=== PATIENT | male | born 1960 | race American Indian/Alaskan Native ===

== ENCOUNTER 2016-12-03 05:37 | Emergency (ER) | payer OTHER ==
[2016-12-03] MEDS ORDERED: PEPCID IV ONE (09:04)
--- NOTE | 2016-12-03 09:06 | Emergency Department Report ---
ED General Adult HPI - General Chief complaint: Sore Throat Stated complaint: THROAT SWOLLEN Time Seen by Provider: 12/03/16 08:54 Source: patient Mode of arrival: Ambulatory Limitations: No Limitations - History of Present Illness Initial comments: This is a 56-year-old male. He is previously known to me. Does not have a primary care doctor. Denies chronic medical conditions. The patient presents to the ER with resolved swelling of his throat. Patient has no complaints at this time. He has no neck pain, neck stiffness, chest pain , shortness of breath at this time. He describes his symptoms as swelling of his neck, and of his tongue. No recent medications, no recent allergies that he is aware of, no recent food changes. Patient and his both report complete resolution of symptoms at this time, they request to go home. -: Gradual Location: mouth, neck Consistency: now resolved Improves with: none Worsens with: none Associated Symptoms: denies other symptoms - Related Data Previous Rx's Medication Instructions Recorded Last Taken Type EPINEPHrine [Epipen 2-Randal] 0.3 mg IM DAILY PRN #2 ml 12/03/16 Unknown Rx Famotidine [Pepcid] 20 mg PO BID #10 tablet 12/03/16 Unknown Rx diphenhydrAMINE [Benadryl] 50 mg PO Q8HR PRN #20 capsule 12/03/16 Unknown Rx methylPREDNISolone [Medrol] 4 mg PO QDAY #1 tab.ds.pk 12/03/16 Unknown Rx Allergies Allergy/AdvReac Type Severity Reaction Status Date / Time No Known Allergies Allergy Unverified 12/03/16 05:59 ED Review of Systems ROS: Stated complaint: THROAT SWOLLEN Other details as noted in HPI Constitutional: denies: malaise Eyes: denies: vision change ENT: throat pain Respiratory: denies: orthopnea Cardiovascular: denies: chest pain Gastrointestinal: denies: abdominal pain, nausea, diarrhea Genitourinary: denies: urgency, dysuria Musculoskeletal: denies: back pain, joint swelling, arthralgia Skin: denies: rash, lesions Neurological: denies: headache, weakness, paresthesias Psychiatric: denies: anxiety, depression ED Past Medical Hx - Past Medical History Previous Medical History?: No - Surgical History Past Surgical History?: Yes Additional Surgical History: knee surgery - Social History Smoking Status: Current Every Day Smoker Substance Use Type: Alcohol - Medications Home Medications: Home Medications Medication Instructions Recorded Confirmed Last Taken Type EPINEPHrine [Epipen 2-Randal] 0.3 mg IM DAILY PRN #2 ml 12/03/16 Unknown Rx Famotidine [Pepcid] 20 mg PO BID #10 tablet 12/03/16 Unknown Rx diphenhydrAMINE [Benadryl] 50 mg PO Q8HR PRN #20 capsule 12/03/16 Unknown Rx methylPREDNISolone [Medrol] 4 mg PO QDAY #1 tab.ds.pk 12/03/16 Unknown Rx ED Physical Exam - General Limitations: No Limitations General appearance: alert, in no apparent distress - Head Head exam: Present: atraumatic, normocephalic - Eye Eye exam: Present: normal appearance, EOMI. Absent: nystagmus - ENT ENT exam: Present: normal exam, normal orophraynx, mucous membranes moist, normal external ear exam, other (there is no neck tenderness. There is no pain with lateral manipulation of the trachea. There is no adenopathy. The patient is speaking in full sentences. There is no stridor.) - Neck Neck exam: Present: normal inspection, full ROM. Absent: tenderness, meningismus - Respiratory Respiratory exam: Present: normal lung sounds bilaterally. Absent: respiratory distress, wheezes, rales, rhonchi, stridor, decreased breath sounds - Cardiovascular Cardiovascular Exam: Present: regular rate, normal rhythm, normal heart sounds. Absent: bradycardia, tachycardia, irregular rhythm, systolic murmur, diastolic murmur, rubs, gallop - GI/Abdominal GI/Abdominal exam: Present: soft, normal bowel sounds. Absent: distended, tenderness, guarding, rebound, rigid, pulsatile mass - Rectal Rectal exam: Present: deferred - Extremities Exam Extremities exam: Present: normal inspection, full ROM, normal capillary refill. Absent: tenderness, pedal edema, joint swelling, calf tenderness - Back Exam Back exam: Present: normal inspection, full ROM. Absent: tenderness, CVA tenderness (R), CVA tenderness (L), muscle spasm, paraspinal tenderness, vertebral tenderness - Neurological Exam Neurological exam: Present: alert, oriented X3, normal gait, other (Extraocular movements intact. Tongue midline. No facial droop. Facial sensation intact to light touch in the V1, V2, V3 distribution bilaterally. 5 and 5 strength in 4 extremities.. Sensation is intact to light touch in 4 extremities.). Absent : motor sensory deficit - Psychiatric Psychiatric exam: Present: normal affect, normal mood - Skin Skin exam: Present: warm, dry, intact, normal color. Absent: rash ED Course Vital Signs 12/03/16 12/03/16 12/03/16 05:59 06:30 09:32 Temperature 98 F Pulse Rate 72 87 Respiratory 18 18 16 Rate Blood Pressure 140/102 Blood Pressure 145/73 [Left] O2 Sat by Pulse 98 99 100 Oximetry - Reevaluation(s) Reevaluation #1: 12/03/16 10:14 Differential diagnosis: Allergic reaction, now resolved, angioedema now resolved Assessment and plan: 56-year-old male who presents with resolved complaint of neck discomfort and swelling. He is afebrile with reassuring vital signs, the neck is supple, there is no stridor, he is speaking in full sentences, with no tenderness, and he is tolerating liquid feeds. The oral cavity is anesthetized with viscous lidocaine, Hurricaine spray, 4 percent lidocaine. I then insert a video laryngoscope and evaluate the patient's hypopharyngeal structures, and see no obvious abnormalities patient has been in the ER for a prolonged period of time, he is tolerating liquid feeds, protecting his airway. Given that patient had resolution of symptoms prior to my evaluation, and that he appears to be tolerating liquid feeds at this time, and his physical examination is unremarkable, I don't believe he requires blood work or advanced imaging at this time. The patient is treated empirically with Solu-Medrol and Pepcid. He will be discharged with a Medrol Dosepak, Pepcid, as needed epinephrine pen, as needed Benadryl. He is instructed to follow up with outpatient primary care and/or otolaryngology. He will be discharged at this time. Return precautions are extensively reviewed. - Procedure Description Procedures done: The oral pharyngeal structures are anesthetized with viscous lidocaine, Hurricaine spray, 4% lidocaine. A video laryngoscope was then inserted by the patient tracing along the superior aspect of his tongue, visualizing the uvula, epiglottis, and hypopharyngeal structures. No significant swelling or abnormalities are noted, the patient tolerated this procedure with difficulty. There were no complications after the procedure. ED Medical Decision Making - Lab Data Vital Signs 12/03/16 12/03/16 12/03/16 05:59 06:30 09:32 Temperature 98 F Pulse Rate 72 87 Respiratory 18 18 16 Rate Blood Pressure 140/102 Blood Pressure 145/73 [Left] O2 Sat by Pulse 98 99 100 Oximetry Critical care attestation.: If time is entered above; I have spent that time in minutes in the direct care of this critically ill patient, excluding procedure time. ED Disposition Clinical Impression: History of neck swelling Disposition: DISCHARGED TO HOME OR SELFCARE Is pt being admited?: No Does the pt Need Aspirin: No Condition: Stable Instructions: Anaphylaxis (ED), Angioedema (ED) Additional Instructions: Take the medications as directed. Follow up with a primary care doctor or otolaryngology specialist within the next week. Dr. Boyce is a local primary care doctor. Dr. Del Rio is a local otolaryngology specialist. Use the epinephrine pen only if you develops swelling, inability to speak, inability to breathe. If you develop any of these symptoms, use the epinephrine pen, contact 911 right away, and return to the ER right away. Return to the ER right away with inability to speak, inability to breathe, inability to swallow, severe pain, swelling of the neck, tongue. Prescriptions: diphenhydrAMINE [Benadryl] 50 mg PO Q8HR PRN #20 capsule PRN Reason: Allergic Reaction EPINEPHrine [Epipen 2-Randal] 0.3 mg IM DAILY PRN #2 ml PRN Reason: Allergic Reaction Famotidine [Pepcid] 20 mg PO BID #10 tablet methylPREDNISolone [Medrol] 4 mg PO QDAY #1 tab.ds.pk Referrals: PRIMARY CARE, [Primary Care Provider] - 3-5 Days GEOFFREY DEL RIO MD [Staff Physician] - 3-5 Days ROWDY BOYCE MD [Staff Physician] - 3-5 Days Forms: Work/School Release Form(ED)
[2016-12-03] MEDS: HURRICAINE ONE 20% TOPICAL SPRAY MM ×2 (09:30→10:07)
[2016-12-03] MEDS: LIDOCAINE VISCOUS 2% PO ONE ×2 (09:30→10:07)
[2016-12-03] MEDS: XYLOCAINE TOPICAL 4% TP ONE ×2 (09:30→10:07)
[2016-12-03 09:32] VITALS: BP 145/73
== END 2016-12-03 11:11 | disposition home or self-care (01) ==
LOC: ED 05:37
DX: R22.1 Localized swelling, mass and lump, neck (principal); F17.200 Nicotine dependence, unspecified, uncomplicated
CPT/HCPCS: 31525; 96374; 96375; 99283; J2930

== ENCOUNTER 2016-12-11 08:25 | Emergency (ER) | payer SELFPAY ==
[2016-12-11 08:39] VITALS: BP 117/91
--- NOTE | 2016-12-11 09:30 | XRay Report ---
Right rib series: Trauma, pain. The ribs are well mineralized. There is no fracture and no destructive lesion identified. Of incidental note is a 3 mm noncalcified nodule in the right upper lobe. Mild degenerative changes are present in the thoracic spine. No other findings. Impressions: 1. Normal right ribs. 2. Small, probably benign right pulmonary nodule. Recommendation: If this patient is a nonsmoker with no cancer history a repeat chest in 4-6 months is recommended. Otherwise, a CT scan may be indicated.
[2016-12-11] MEDS ORDERED: MOTRIN PO ONE (11:50)
--- NOTE | 2016-12-11 11:56 | Emergency Department Report ---
ED General Adult HPI - General Chief complaint: Chest Pain Stated complaint: SOB/RIB PAIN Time Seen by Provider: 12/11/16 11:37 Source: patient Mode of arrival: Ambulatory Limitations: No Limitations - History of Present Illness Initial comments: PT states 4 days ago, he climbed onto his bumper, to reach a pipe out of his truck bed. PT states the bumper was wet, and he slipped. PT states he fell forward and his R ribs hit the tail gate. PT states he did not have much pain on the day of the injury, but then the next day, he felt pain in his ribs. 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) - Related Data Previous Rx's Medication Instructions Recorded Last Taken Type EPINEPHrine [Epipen 2-Randal] 0.3 mg IM DAILY PRN #2 ml 12/03/16 Unknown Rx Famotidine [Pepcid] 20 mg PO BID #10 tablet 12/03/16 Unknown Rx diphenhydrAMINE [Benadryl] 50 mg PO Q8HR PRN #20 capsule 12/03/16 Unknown Rx methylPREDNISolone [Medrol] 4 mg PO QDAY #1 tab.ds.pk 12/03/16 Unknown Rx Acetaminophen/Codeine [Tylenol #3] 1 tab PO Q6H PRN #12 tab 12/11/16 Unknown Rx Ibuprofen [Motrin] 600 mg PO Q8H PRN #15 tablet 12/11/16 Unknown Rx Allergies Allergy/AdvReac Type Severity Reaction Status Date / Time No Known Allergies Allergy Unverified 12/03/16 05:59 ED Review of Systems ROS: Stated complaint: SOB/RIB PAIN Other details as noted in HPI Comment: All other systems reviewed and negative Constitutional: denies: diaphoresis, fever Respiratory: denies: cough, shortness of breath, SOB with exertion, SOB at rest Cardiovascular: chest pain (chest wall pain ). denies: syncope Gastrointestinal: denies: abdominal pain, nausea, vomiting Musculoskeletal: denies: back pain ED Past Medical Hx - Past Medical History Previous Medical History?: No - Surgical History Past Surgical History?: Yes Additional Surgical History: knee surgery - Social History Smoking Status: Current Every Day Smoker Substance Use Type: Alcohol, Non Opiate Pain - Medications Home Medications: Home Medications Medication Instructions Recorded Confirmed Last Taken Type EPINEPHrine [Epipen 2-Randal] 0.3 mg IM DAILY PRN #2 ml 12/03/16 Unknown Rx Famotidine [Pepcid] 20 mg PO BID #10 tablet 12/03/16 Unknown Rx diphenhydrAMINE [Benadryl] 50 mg PO Q8HR PRN #20 capsule 12/03/16 Unknown Rx methylPREDNISolone [Medrol] 4 mg PO QDAY #1 tab.ds.pk 12/03/16 Unknown Rx Acetaminophen/Codeine [Tylenol #3] 1 tab PO Q6H PRN #12 tab 12/11/16 Unknown Rx Ibuprofen [Motrin] 600 mg PO Q8H PRN #15 tablet 12/11/16 Unknown Rx ED Physical Exam - General Limitations: No Limitations General appearance: alert, in no apparent distress - Head Head exam: Present: atraumatic, normocephalic, normal inspection - Eye Eye exam: Present: normal appearance, PERRL, EOMI. Absent: conjunctival injection - ENT ENT exam: Present: normal exam, normal external ear exam - Neck Neck exam: Present: normal inspection, full ROM. Absent: tenderness - Respiratory Respiratory exam: Present: normal lung sounds bilaterally, chest wall tenderness (R lateral ribs TTP ). Absent: respiratory distress, wheezes, rales , rhonchi, stridor - Cardiovascular Cardiovascular Exam: Present: regular rate, normal rhythm, normal heart sounds - GI/Abdominal GI/Abdominal exam: Present: soft. Absent: tenderness - Extremities Exam Extremities exam: Present: normal inspection, full ROM - Back Exam Back exam: Present: normal inspection, full ROM. Absent: tenderness, CVA tenderness (R), CVA tenderness (L), muscle spasm, paraspinal tenderness, vertebral tenderness - Neurological Exam Neurological exam: Present: alert, oriented X3, normal gait - Psychiatric Psychiatric exam: Present: normal affect, normal mood - Skin Skin exam: Present: warm, dry, intact, normal color. Absent: ecchymosis ED Course Vital Signs 12/11/16 08:35 Temperature 97.7 F Pulse Rate 95 H Respiratory 20 Rate Blood Pressure 117/91 O2 Sat by Pulse 100 Oximetry - Reevaluation(s) Reevaluation #1: 12/11/16 11:56 PT aware of XR results, including probable lung nodule and need for follow up. - Pulse Oximetry Interpretation Digit-Finger Initial Pulse Oximetry Readin Actions Taken: none ED Medical Decision Making - Radiology Data Radiology results: report reviewed Rib XR: 1. normal ribs 2. small probably benign R pulmonary nodule - Differential Diagnosis rib fx, contusion, Critical Care Time: No Critical care attestation.: If time is entered above; I have spent that time in minutes in the direct care of this critically ill patient, excluding procedure time. ED Disposition Clinical Impression: Lung nodule seen on imaging study Chest wall injury Qualifiers: Encounter type: initial encounter Qualified Code(s): S29.9XXA - Unspecified injury of thorax, initial encounter Disposition: DISCHARGED TO HOME OR SELFCARE Is pt being admited?: No Does the pt Need Aspirin: No Condition: Stable Instructions: Rib Fracture (ED), How to Use an Incentive Spirometer (ED) Additional Instructions: No driving or ETOH After taking Tylenol #3 Follow up with your PCP when you return to [place], you will need further imaging to evaluate the small nodule seen on your chest XR Referrals: PRIMARY CAREMD [Primary Care Provider] - 3-5 Days Forms: Work/School Release Form(ED) Time of Disposition: 12:12
== END 2016-12-11 12:41 | disposition home or self-care (01) ==
LOC: ED 08:25
DX: S29.8XXA Other specified injuries of thorax, initial encounter (principal); F17.200 Nicotine dependence, unspecified, uncomplicated; W01.0XXA Fall on same level from slipping, tripping and stumbling without subsequent striking against object, initial encounter; Y93.89 Activity, other specified; Y92.89 Other specified places as the place of occurrence of the external cause; Y99.8 Other external cause status